=== PATIENT | male | born 1960 | race Caucasian/White ===

== ENCOUNTER → 2022-06-05 13:55 | Outpatient (CLI) | payer OTHER, SELFPAY ==
--- NOTE | 2022-06-05 | DI.CT.S_ITS ---
PROCEDURE: CT ABDOMEN RENAL PROTOCOL INDICATIONS: RENAL CYST TECHNIQUE: Optional 5 mm thick noncontrast images acquired from the diaphragm to the iliac crests. After the administration of intravenous contrast, 5 mm thick images again acquired from the diaphragm to the iliac crests in the arterial and urographic phases. 5 mm thick coronal and sagittal reformats were then acquired. For radiation dose reduction, the following was used: automated exposure control, adjustment of mA and/or kV according to patient size. COMPARISON: Outside Facility, RG, CT ABDOMEN W/WO CONTRAST, 03/30/2017, 15:28. Outside Facility, RG, CT THORAX/ ABD/ PELVIS WITH CONTRAST, 11/18/2018, 15:33. FINDINGS: Image quality: Adequate Lung bases: No pleural effusion. Same day CT of the chest is dictated separately. Genitourinary: Redemonstrated partially exophytic mass at the posterior left mid kidney, 1.3 cm () unchanged when remeasured similarly on prior CTs. The mass is heterogeneous in attenuation but demonstrates internal enhancement compatible with at least a solid enhancing portion. The mass may have contain macroscopic fat on the 2017 exam. Macroscopic fat is difficult to identify the current study, but could be related to technical factors. No hydronephrosis bilaterally. Cortical scarring left upper kidney redemonstrated. Other solid organs: Liver is normal in size and enhancement. Gallbladder is unremarkable . Biliary system is non dilated. Pancreas enhances normally. Spleen is normal in size and enhancement. No adrenal nodules. Peritoneum and bowel: Visualized large and small bowel is non-dilated. No free air or substantial free fluid. Nodes and vessels: No retroperitoneal or mesenteric adenopathy by size criteria. Aorta and inferior vena cava are normal in caliber. Retroaortic left renal vein variant anatomy. Bones: Multilevel degenerative change of the visualized spine. IMPRESSION: 1. Previously demonstrated partially exophytic mass at the left posterior mid kidney is not significantly changed in size since at least 2017. Presence of internal enhancement raises the possibility of etiologies such as renal cell carcinoma, but other etiologies are also possible including oncocytoma or potentially angiomyolipoma given possible presence of macroscopic fat on prior imaging. Other etiologies are not excluded. Continued imaging follow-up can be obtained as clinically indicated. 2. No evidence of abdominal metastatic disease identified. Dictated by: Obi Dickson M.D. on 06/05/2022 at 21:35 Approved by: Obi Dickson M.D. on 06/05/2022 at 22:16
--- NOTE | 2022-06-05 | DI.CT.S_ITS ---
PROCEDURE: CT CHEST W CON INDICATIONS: Cyst of kidney, acquired; disorders of lung TECHNIQUE: After the administration of intravenous contrast, 5 mm thick sections acquired from the pulmonary apices to the posterior costophrenic angles. 1 mm axial lung, 5 mm thick coronal and sagittal reformats and 7 mm axial MIP were acquired. For radiation dose reduction, the following was used: automated exposure control, adjustment of mA and/or kV according to patient size. COMPARISON: Outside Facility, RG, CT ANGIO CHEST, 12/19/2018, 18:24. FINDINGS: Image quality: Adequate Lungs and pleura: No large/highly suspicious pulmonary nodule or mass. A few small nodules are present as before and not significantly changed, for example a 4 mm right lower lobe nodule along the fissure (3/246) likely representing an intrapulmonary lymph node. A 7 mm right lower lobe subpleural nodule (3/197) is also unchanged. No pleural effusion. Mediastinum: Multivessel coronary artery calcifications and/or stents. No pericardial effusion. No mediastinal or hilar adenopathy by size criteria. Thoracic aorta and central pulmonary arteries are normal in size. Esophagus is normal in caliber. Bones and chest wall: No vertebral body compression fractures. No axillary or supraclavicular adenopathy by size criteria. Abdomen: Dictated separately in CT of the abdomen same day. IMPRESSION: 1. No acute appearing airspace opacity visualized. 2. No significant change in small nonspecific pulmonary nodules. Dictated by: Obi Dickson M.D. on 06/05/2022 at 22:16 Approved by: Obi Dickson M.D. on 06/05/2022 at 22:38
[2022-06-05 14:48] LABS: Estimated Glomerular Filt Rate > 60 mL/min (>60)
== END ==
PROVIDERS: Radiology Diagnostic Radiology; PCP Acupuncturist; Referring Provider Acupuncturist; Visit Provider Acupuncturist
DX: N28.1 Cyst of kidney, acquired (principal); J98.4 Other disorders of lung; N28.89 Other specified disorders of kidney and ureter; R91.8 Other nonspecific abnormal finding of lung field
CPT/HCPCS: 36415; 71260; 74170; 82565; Q9967

== ENCOUNTER → 2023-05-31 10:43 | Outpatient (CLI) | payer OTHER, SELFPAY ==
--- NOTE | 2023-05-31 | DI.US.S_ITS ---
PROCEDURE: US CAROTID DOPPLER BI INDICATIONS: HYPERLIPIDEMIA TECHNIQUE: Color and pulse Doppler interrogation was performed of both carotid systems, with image documentation and velocity measurements. COMPARISON: None. FINDINGS: Stenosis calculations are based on SRU (Society of Radiologists in Ultrasound) criteria. Right side: Brachial blood pressure: 154/87 mm Hg. Common carotid artery peak systolic velocity: 76 cm/sec. Internal carotid artery peak systolic velocity: 74 cm/sec. Internal carotid artery end diastolic velocity: 24 cm/sec. External carotid artery peak systolic velocity: 148 cm/sec. ICA/CCA peak systolic ratio: 1.0 . Cook scale imaging description: Mild calcific plaque at the bifurcation Percent internal carotid artery stenosis: Less than 50% . Vertebral artery: Flow direction is antegrade. Left side: Brachial blood pressure: 150/86 mm Hg. Common carotid artery peak systolic velocity: 90 cm/sec. Internal carotid artery peak systolic velocity: 63 cm/sec. Internal carotid artery end diastolic velocity: 24 cm/sec. External carotid artery peak systolic velocity: 116 cm/sec. ICA/CCA peak systolic ratio: 0.7 . Cook scale imaging description: Mild calcific plaque at the bifurcation Percent internal carotid artery stenosis: Less than 50% . Vertebral artery: Flow direction is antegrade. IMPRESSION: 1. Less than 50% bilateral internal carotid artery stenosis. 2. Antegrade vertebral artery flow bilaterally. Dictated by: Olena Garcia M.D. on 05/31/2023 at 15:42 Approved by: Olena Garcia M.D. on 05/31/2023 at 15:43
== END ==
PROVIDERS: PCP Acupuncturist; Referring Provider Acupuncturist; Visit Provider Acupuncturist
DX: I65.23 Occlusion and stenosis of bilateral carotid arteries (principal); I99.9 Unspecified disorder of circulatory system; E78.2 Mixed hyperlipidemia
CPT/HCPCS: 93880

== ENCOUNTER → 2023-06-29 09:23 | Outpatient (CLI) | payer OTHER, SELFPAY ==
--- NOTE | 2023-06-29 | DI.CT.S_ITS ---
PROCEDURE: CT CHEST ABDOMEN W CON INDICATIONS: Cyst of kidney, acquired; Disorders of lung TECHNIQUE: After the administration of intravenous contrast, 5 mm thick sections acquired from the lung apices to the iliac crests. 5 mm coronal and sagittal reformats were performed, with additional 7 mm coronal MIP reformats through the lungs. For radiation dose reduction, the following was used: automated exposure control, adjustment of mA and/or kV according to patient size. COMPARISON: [facility], CT, CT ABDOMEN RENAL PROTOCOL, 06/05/2022, 15:05. CT, CT CHEST W CON, 06/05/2022, 15:05. Outside Facility, RG, CT ANGIO CHEST, 12/19/2018, 18:24. FINDINGS: Image quality: Excellent. CHEST: Lower Neck: No enlarged lymph nodes. Thyroid: No thyroid nodules which require sonographic follow up, per consensus guidelines. Axillae: No enlarged lymph nodes. Chest Wall: Minimal undulation of the left lateral 10th rib, unchanged. Bones: No suspicious osseous lesion. Lungs and Pleura: No pneumothorax or pleural effusions. No acute airspace opacity. Airways are clear. No mass. No new or enlarging pulmonary nodule seen. A few small pulmonary nodules. For example: -Right major fissure nodule measuring 0.3 cm, (5/148); measuring 0.3 cm, (5/252), unchanged since 2019. -Right lower lobe subpleural 0.7 cm, (5/203), unchanged. -Left lower lobe pulmonary nodule measuring 0.4 cm, (5/248), unchanged. Heart: Heart size is normal. Three-vessel coronary artery calcifications. No pericardial effusion. Thoracic Vessels: The aorta and pulmonary arteries demonstrate normal size. Mediastinum and Alis: No enlarged lymph nodes. Esophagus: No wall thickening. No hiatal hernia. ABDOMEN: Liver: No solid mass. Gallbladder: No radiopaque gallstones or wall thickening. Biliary ducts: No biliary dilation. Pancreas: No ductal dilation. Spleen: Size is within normal limits. Adrenal Glands: No adrenal nodules. Kidneys and Ureters: No hydronephrosis. Left renal scarring. Suspected small mass at the mid left kidney measuring 1 cm, (), remotely 1.2 cm in 2016. Stomach and Bowel: Normal colonic caliber, without significant wall thickening. Peritoneum: No abnormal intraperitoneal fluid. No free air. Ventral Wall: No hernia. Abdominal Nodes: No retroperitoneal or mesenteric adenopathy by size criteria. Vessels: Aorta and inferior vena cava are normal in size. Retroaortic left renal vein. Bones: No suspicious osseous lesion. IMPRESSION: 1. No new or enlarging pulmonary nodules. Several small pulmonary nodules which are unchanged since at least 2019 favoring a benign etiology. 2. Suspected small left renal mass measuring 1 cm is slightly decreased compared to 2016. Favor benign or indolent etiology. Consider follow-up renal MRI. 3. Stable left renal scarring. 4. No adenopathy. 5. Three-vessel coronary artery calcifications. Dictated by: Yoel Blue M.D. on 06/29/2023 at 14:35 Approved by: Yoel Blue M.D. on 06/29/2023 at 14:55
[2023-06-29 10:30] LABS: Estimated Glomerular Filt Rate > 60 mL/min (>60)
== END ==
PROVIDERS: Radiology Diagnostic Radiology; PCP Acupuncturist; Referring Provider Acupuncturist; Visit Provider Acupuncturist
DX: J98.4 Other disorders of lung (principal); R91.8 Other nonspecific abnormal finding of lung field; N28.1 Cyst of kidney, acquired; I25.10 Atherosclerotic heart disease of native coronary artery without angina pectoris
CPT/HCPCS: 36415; 71260; 74160; 82565; Q9967

== ENCOUNTER 2023-07-13 17:23 | Emergency (ER) | payer MEDICARE, SELFPAY ==
[2023-07-13] VITALS (11 sets, daily range): BP systolic 153–215; BP diastolic 82–115; PULSE 70–89; RESP 9–18; TEMP 37.3; O2SAT 94–99; BMI 27.2
--- NOTE | 2023-07-13 17:27 | DI.RAD.S_ITS ---
PROCEDURE: XR CHEST 1V INDICATIONS: chest pain TECHNIQUE: One view of the chest was acquired. COMPARISON: None. FINDINGS: Surgical changes and devices: None. Lungs and pleura: Lungs are clear. No pleural effusions or pneumothorax. Mediastinum: Mediastinal contours appear normal. Heart size is normal. Bones and chest wall: No suspicious bony lesions. Overlying soft tissues appear unremarkable. IMPRESSION: No acute cardiopulmonary abnormality is seen. Dictated by: Renetta Boothe M.D. on 07/13/2023 at 18:02 Approved by: Renetta Boothe M.D. on 07/13/2023 at 18:03
--- NOTE | 2023-07-13 17:46 | PC.NURSE ---
Patient has been experiencing palpitations racing, buzzing in chest like a machine gun recent had ZIO patch. Spoke with silo operator and was recommended to come to ER for chest discomfort that has been going on since last night. States pinching discomfort in left chest, left arm and into back. reports waking in middle of night with some SOB. Denies SOB at present, denies nausea. Has factor Five, and is currently on Elloquis
[2023-07-13 17:57] LABS: Add Manual Diff / Slide Review NO; Basophils Absolute Auto 0 /uL (0-100); Basophils Percent Auto 0.6 % (0-2); Eosinophils Absolute Auto 0 /uL (0-450); Eosinophils Percent Auto 0.5 % (2-4); Hematocrit 43.8 % (41-53); Lymphocytes Absolute Auto 1200 /uL (1100-4500); Lymphocytes Percent Auto 19.4 % (25-40); Mean Corpuscular HGB Conc 34.2 % (30-36); Mean Corpuscular Hemoglobin 31.8 PG (26-34); Mean Corpuscular Volume 93.1 fL (80-100); Monocytes Absolute Auto 500 /uL (0-900); Monocytes Percent Auto 7.4 % (3-14); Neutrophils Absolute Auto 4400 /uL (1500-7000); Neutrophils Percent Auto 72.1 % (50-75); Platelet Count 181 X10^3/uL (150-400); Red Cell Distribution Width 13.7 % (11.6-14.8); White Blood Cell Count 6.2 X10^3/uL (4.5-11.0)
--- NOTE | 2023-07-13 18:01 | ED.CHESTPAIN ---
HPI - Chest Pain General Chief Complaint: Chest Pain Stated Complaint: chest pain Time Seen by Provider: 07/13/23 17:34 Source: patient Mode of arrival: Family Vehicle Limitations: no limitations History of Present Illness HPI narrative: Patient is a 63-year-old male history lupus, juvenile arthritis, factor 5 on Eliquis with a history of DVT and PE presents today with left-sided chest pain. He actually is followed by Dr. Cooper cardiology who called previous provider give update. Patient reports that he has had ongoing left-sided chest pain. He reports that last night it was so bad it kept him from sleeping for about 20 minutes it went down his left arm he was shaking. It finally subsided. He denies any shortness breath. He reports some constant ongoing dull heaviness throughout the day. No nausea no diaphoresis. He has not had any fever. His primary a ZIO patch and it was noted he had multiple palpitations frequently however he states that this is not palpitations related. He recently had a CT chest abdomen pelvis here at this hospital which did show three-vessel calcifications coronary artery disease. Patient has never had cardiac event. He is still complaining of some left-sided chest discomfort. Patient reports he had a sleep sitting up. It has not any worse with leaning forward or leaning backwards. It has not reproducible with pain on palpation or movement. Related Data Allergies Allergy/AdvReac Type Severity Reaction Status Date / Time adhesive tape AdvReac Rash Verified 07/13/23 17:44 Patient History Social History Smoking Status: Never smoker Smoking Status: Never smoker alcohol intake frequency: 0-2 drinks per day Substance Use Type: does not use Exam Initial Vital Signs Initial Vital Signs: Vital Signs Pulse Rate 86 07/13/23 17:29 Pulse Oximetry 98 07/13/23 17:29 GENERAL: Alert pleasant 63-year-old male and in [no acute] distress. HEENT: Head atraumatic,EOMI, pupils reactive, face symmetric, [moist] mucous membranes CARDIOVASCULAR: Regular rate and rhythm without murmurs, rubs or gallops. RESPIRATORY: Breath sounds equal bilaterally, no wheezes rales or rhonchi. ABDOMEN: Soft, nontender. Normoactive bowel sounds all 4 quadrants. No guarding or rebound. EXTREMITIES: Normal range of motion, no clubbing or edema. Neurovascularly intact NEUROLOGICAL: Alert and oriented x4.Normal gait and speech. SKIN: Warm, dry, no laceration, no petechiae, no rashes or lesions. Scores HEART Score Heart Score history: Moderately Suspicious Heart Score EKG: Normal Heart Score Age: > or = 65 years old Heart Score risk factors: 1-2 risk factors Heart Score troponin: < or = to normal limit Heart Score Total: 4 Course Orders Ordered: ED Orders 07/13/23 17:27 XR chest 1V Stat 07/13/23 17:32 EKG-12 Lead Stat 07/13/23 17:35 BNP [NT-proBNP (BNP-Adult 18+)] Stat Complete Blood Count AUTO DIFF Stat Comprehensive Metabolic Panel Stat Lipase Stat Magnesium Stat PTT Partial Thromboplastin Kaleb Stat Prothrombin Time INR Stat Troponin & CK Cardiac Panel Stat 07/13/23 19:22 Trop I [Troponin I] Stat 07/13/23 19:27 EKG-12 Lead Stat Discontinued Medications Nitroglycerin (Nitroglycerin 0.4 Mg Sl Tab) 0.4 mg SL [id number] PRN PRN Reason: Chest Pain Vital Signs Vital signs: Vital Signs - 8 hr 07/13/23 17:29 07/13/23 17:30 07/13/23 17:31 Temperature Pulse Rate 86 89 86 Respiratory Rate 12 Blood Pressure Pulse Oximetry 98 99 99 Oxygen Delivery Method 07/13/23 17:31 07/13/23 17:34 07/13/23 17:34 Temperature Pulse Rate 82 Respiratory Rate 15 Blood Pressure 195/115 H 215/98 H Pulse Oximetry 99 Oxygen Delivery Method 07/13/23 17:39 07/13/23 18:00 07/13/23 18:01 Temperature 99.1 F Pulse Rate 88 82 Respiratory Rate 18 17 Blood Pressure 215/98 H 174/82 H Pulse Oximetry 99 98 Oxygen Delivery Method Room Air 07/13/23 18:01 07/13/23 18:30 07/13/23 18:30 Temperature Pulse Rate 79 72 Respiratory Rate 14 17 Blood Pressure 158/84 H Pulse Oximetry 99 94 Oxygen Delivery Method Room Air 07/13/23 19:00 07/13/23 19:00 07/13/23 19:30 Temperature Pulse Rate 73 Respiratory Rate 9 L Blood Pressure 157/86 H 153/96 H Pulse Oximetry 98 Oxygen Delivery Method 07/13/23 19:30 07/13/23 20:00 07/13/23 20:00 Temperature Pulse Rate 78 70 Respiratory Rate 14 9 L Blood Pressure 156/88 H Pulse Oximetry 98 98 Oxygen Delivery Method Room Air Room Air MDM - Chest Pain Lab Data 07/13/23 17:35 07/13/23 17:35 Labs: Lab Results 07/13/23 07/13/23 Range/Units 17:35 19:22 WBC 6.2 (4.5-11.0) X10^3/uL RBC 4.70 (4.5-5.9) X10^6/uL Hgb 15.0 (13.5-17.5) g/dL Hct 43.8 (41-53) % MCV 93.1 (80-100) fL MCH 31.8 (26-34) PG MCHC 34.2 (30-36) % RDW 13.7 (11.6-14.8) % Plt Count 181 (150-400) X10^3/uL Neut % (Auto) 72.1 (50-75) % Lymph % (Auto) 19.4 L (25-40) % [place] % (Auto) 7.4 (3-14) % Eos % (Auto) 0.5 L (2-4) % Baso % (Auto) 0.6 (0-2) % Neut # (Auto) 4400 (7214-9762) /uL Lymph # (Auto) 1200 (7044-2950) /uL [place] # (Auto) 500 (0-900) /uL Eos # (Auto) 0 (0-450) /uL Baso # (Auto) 0 (0-100) /uL PT 12.2 (9.4-12.5) SECONDS INR 1.1 (0.9-1.3) APTT 33 (25.1-36.5) SECONDS Sodium 138 (137-145) mmol/L Potassium 3.9 (3.4-5.1) mmol/L Chloride 103 (98-107) mmol/L Carbon Dioxide 26 (22-32) mmol/L BUN 17 (9-20) mg/dL Creatinine 1.05 (0.66-1.25) mg/dL Estimated GFR > 60 (>60) mL/min BUN/Creatinine Ratio 16.2 (6-22) Glucose 89 (80-110) mg/dL Calcium 9.8 (8.4-10.2) mg/dL Magnesium 2.0 (1.6-2.3) mg/dL Total Bilirubin 0.8 (0.2-1.3) mg/dL AST 29 (17-59) IU/L ALT 21 (<50) IU/L Alkaline Phosphatase 34 L (38-126) U/L Total Creatine Kinase 85 (55-170) U/L Troponin I < 0.012 < 0.012 (0.01-0.034) ng/mL NT-Pro-B Natriuret Pep 293 H (<125) pg/mL Total Protein 7.7 (6.3-8.2) g/dL Albumin 4.5 (3.5-5.0) g/dL Globulin 3.2 (1.7-4.1) g/dL Albumin/Globulin Ratio 1.4 (1.0-2.8) Lipase 52 (23-300) U/L Imaging Data Chest x-ray: Radiologist's Impression: PROCEDURE: XR CHEST 1V INDICATIONS: chest pain TECHNIQUE: One view of the chest was acquired. COMPARISON: None. FINDINGS: Surgical changes and devices: None. Lungs and pleura: Lungs are clear. No pleural effusions or pneumothorax. Mediastinum: Mediastinal contours appear normal. Heart size is normal. Bones and chest wall: No suspicious bony lesions. Overlying soft tissues appear unremarkable. IMPRESSION: No acute cardiopulmonary abnormality is seen. Dictated by: Renetta Boothe M.D. on 07/13/2023 at 18:02 ECG Data Interpretation: Normal sinus rhythm rate 83 HI interval 182 QRS [address] changes no T-wave inversions EKG 2. Sinus rhythm rate 70 no ischemic changes similar to previous MDM Narrative Medical decision making narrative: Patient is 63-year-old male with history of lupus factor 5 Leiden juvenile arthritis presenting today with chest discomfort sent from cardiology office. He has no longer having any chest pain here in the ED. he has known coronary calcifications seen on chest CT from a couple weeks ago Blood work has been reviewed he has 2- troponins no MARS or anemia, no evidence of congestive heart failure Chest x-ray has been reviewed and is negative Patient has been chest pain-free in the ED has a moderate heart score of 4. 2000 Dr. 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 He is aware of [facility] limited capabilities. He reports that patient has pretty severe sleep apnea has been unable to get him in for formal sleep study. He requests that we keep the patient overnight monitor his oxygen as he is hypoxic it could be contributing to his chest pain. He will work on getting an outpatient stress test. If we are able to get the the echocardiogram that would be greatly appreciated. However if not able to he will do that as an outpatient as well. He requests to be tested on his cell phone what tests were done during his hospital stay Dr. Garg accepts patient. 20:35, patient ambulated in the ED aware he needs admission. However he would really prefer to go home. It is unclear if he will be able to get the echo tomorrow but sometimes we are able to do so. He would like to just follow-up with Cardiology next week. We have had a lengthy discussion about calling 911 going to the nearest hospital if you should have recurrence of chest pain. Both he and his understands. He also understands that he is at risk to have cardiac disease and event. Dr. Cooper is made aware patient's decision to leave. He will be sure to follow-up with patient next week. Discharge Plan Departure Patient Disposition: Home Clinical Impression: Chest pain Activity Restrictions/Additional Instructions: *You have been diagnosed with chest pain *What to do: At this time was encouraged for you to stay in the hospital overnight for further testing and monitoring. If you should have recurrence of chest pain call 911 and return to the nearest hospital. You need further studies such as sleep study echocardiogram and stress test. There is concern that you have underlying heart disease *Continue to take medications as directed *Follow up with your primary care provider in 2-3 days or call [phone] Follow-up with Dr. Cooper *Return to ER if you should have increasing chest pain shortness of breath arm pain weakness or any new, worsening or concerning symptoms Referrals: Jimi Hernandez MD [Non-Staff] - Sylvia Clements ND [Primary Care Provider] - Stand Alone Forms: Patient Portal/API
[2023-07-13 18:05] LABS: Alanine Aminotransferase 21 IU/L (<50); Albumin 4.5 g/dL (3.5-5.0); Albumin Globulin Ratio 1.4 (1.0-2.8); Alkaline Phosphatase 34 U/L (38-126); Aspartate Aminotransferase 29 IU/L (17-59); BUN Creatinine Ratio 16.2 (6-22); Bilirubin Total 0.8 mg/dL (0.2-1.3); Blood Urea Nitrogen 17 mg/dL (9-20); Calcium 9.8 mg/dL (8.4-10.2); Carbon Dioxide 26 mmol/L (22-32); Chloride 103 mmol/L (98-107); Creatine Kinase 85 U/L (55-170); Estimated Glomerular Filt Rate > 60 mL/min (>60); Globulin 3.2 g/dL (1.7-4.1); Glucose 89 mg/dL (80-110); HEMOLYSIS < 15 (0-50); Lipase 52 U/L (23-300); Potassium 3.9 mmol/L (3.4-5.1); Sodium 138 mmol/L (137-145); Total Protein 7.7 g/dL (6.3-8.2)
[2023-07-13 18:14] LABS: NT-proBNP (BNP-Adult 18+) 293 pg/mL (<125)
[2023-07-13 18:17] LABS: Troponin I < 0.012 ng/mL (0.01-0.034)
[2023-07-13 18:21] LABS: INR 1.1 (0.9-1.3); Prothrombin Time 12.2 SECONDS (9.4-12.5)
[2023-07-13 18:23] LABS: PTT Partial Thromboplastin Tim 33 SECONDS (25.1-36.5)
[2023-07-13 19:55] LABS: Troponin I < 0.012 ng/mL (0.01-0.034)
== END 2023-07-13 20:53 | disposition home or self-care (01) ==
LOC: ED 20:23 → AC 20:35
PROVIDERS: Emergency Medicine; Emergency Provider Emergency Medicine; PCP Acupuncturist
DX: R07.9 Chest pain, unspecified (principal); Z79.01 Long term (current) use of anticoagulants
CPT/HCPCS: 36415; 71045; 80053; 82550; 83690; 83735; 83880; 84484; 85025; 85610; 85730; 93005; 93010; 99284

== ENCOUNTER → 2024-10-31 | Outpatient (CLI) | payer MEDICARE, SELFPAY ==
--- NOTE | 2024-10-31 09:53 | DI.CT.S_ITS ---
PROCEDURE: CT ABDOMEN PELVIS W CON INDICATIONS: f/u nodule, flank pain TECHNIQUE: After the administration of intravenous contrast, axial sections acquired from the lung bases to the pubic symphysis. Coronal and sagittal reformats were performed. For radiation dose reduction, the following was used: automated exposure control, adjustment of mA and/or kV according to patient size. COMPARISON: [facility], CT, CT CHEST ABDOMEN W CON, 06/29/2023, 11:47. [facility], CR, XR CHEST 1V, 07/13/2023, 17:37. FINDINGS: Image quality: Diagnostic. Lower Chest: No significant findings. ABDOMEN: Liver: No solid mass. Gallbladder: No radiopaque gallstones or wall thickening. Biliary ducts: No biliary dilation. Pancreas: No ductal dilation. Spleen: Size is within normal limits. Adrenal Glands: No adrenal nodules. Kidneys and Ureters: No hydronephrosis. No definite solid mass. A small nodular radiodensity at the posterior border of the left mid kidney is again seen and also was previously identified in [address]. This has not enlarged in size over time and currently measures 1.0 cm in maximal dimension. No complex renal cystic lesion which requires follow up. Stomach and Bowel: Normal colonic caliber, without significant wall thickening. Peritoneum: No abnormal intraperitoneal fluid. No free air. Ventral Wall: No significant ventral hernia. Abdominal Nodes: No retroperitoneal or mesenteric adenopathy by size criteria. Vessels: Aorta and inferior vena cava are normal in size. PELVIS: Pelvic Organs: Unremarkable. Bladder: No bladder wall thickening, accounting for underdistention. Pelvic Nodes: No enlarged lymph nodes. Miscellaneous: No inguinal hernias are seen. Bones: No aggressive osseous abnormality. IMPRESSION: Stable appearance of a small focus of cortical undulation at the posterior margin of the left mid kidney. This is unchanged over [address] scans from 2018 and 2022. Benign etiology is likely cause. No acute disease found, source of left-sided flank pain is not identified. Dictated by: Jax Velazquez M.D. on 10/31/2024 at 15:38 Approved by: Jax Velazquez M.D. on 10/31/2024 at 15:45
--- NOTE | 2024-10-31 09:54 | DI.CT.S_ITS ---
PROCEDURE: CT CHEST WO CON INDICATIONS: f/u nodule, flank pain TECHNIQUE: Noncontrast 5 mm thick sections acquired from the pulmonary apices to the posterior costophrenic angles. 1 mm lung window, 5 mm thick coronal and sagittal and 7 mm axial MIP reformats were then acquired. For radiation dose reduction, the following was used: automated exposure control, adjustment of mA and/or kV according to patient size. COMPARISON: [facility], CT, CT CHEST ABDOMEN W CON, 06/29/2023, 11:47. [facility], CR, XR CHEST 1V, 07/13/2023, 17:37. FINDINGS: Image quality: Diagnostic. Lower Neck: No enlarged lymph nodes. Thyroid: No thyroid nodules which require sonographic follow up, per consensus guidelines. Axillae: No enlarged lymph nodes. Chest Wall: Unremarkable. Bones: Unremarkable. Lungs and Pleura: No pneumothorax or pleural effusions. No consolidation or suspicious nodules. Previously identified sub 5 mm scattered bilateral pulmonary nodules have not changed with reference to prior chest CT scanning 06/29/23 and 06/05/22. These likely represent sequela of prior granulomatous disease. Heart: Heart size is normal. No pericardial effusion. Thoracic Vessels: The aorta and pulmonary arteries demonstrate normal size. Mediastinum and Alis: No enlarged lymph nodes. Esophagus: No wall thickening. No hiatal hernia. Upper Abdomen: Visualized upper abdomen solid organs and bowel loops appear normal. IMPRESSION: Stable scattered small bilateral pulmonary nodules from 2022 and 2021. Benign etiology is presumed. Please evaluate whether the patient has a long-term smoking history and would meet eligibility criteria for screening CT scanning for early detection of lung carcinoma. Given stability over time the current sub 5 mm nodules are considered most likely sequela of old granulomatous disease. Dictated by: Jax Velazquez M.D. on 10/31/2024 at 15:45 Approved by: Jax Velazquez M.D. on 10/31/2024 at 15:53
== END ==
LOC: CT 09:52
PROVIDERS: PCP Nurse Practitioner Family; Referring Provider Nurse Practitioner Family; Visit Provider Nurse Practitioner Family
DX: D17.71 Benign lipomatous neoplasm of kidney (principal); R91.8 Other nonspecific abnormal finding of lung field; M35.9 Systemic involvement of connective tissue, unspecified; R10.9 Unspecified abdominal pain; Z86.711 Personal history of pulmonary embolism
CPT/HCPCS: 71250; 74177; Q9967